=== PATIENT | male | born 1935 | race Caucasian/White ===

== ENCOUNTER → 2017-08-27 | Outpatient (REF) | payer MEDICARE, OTHER ==
[2017-08-27 14:36] LABS: C REACTIVE PROTEIN QUANTITATIV 1.86 MG/DL (0.00-0.30)
[2017-08-29 16:05] LABS: Lyme Disease IgG/IgM Antibodie <0.91 ISR (0.00-0.90); Lyme Disease IgM Ab Quantitati <0.80 index (0.00-0.79)
== END ==
LOC: M LAB REF 13:33
DX: M79.1 Myalgia (principal); M25.50 Pain in unspecified joint
CPT/HCPCS: 86140

== ENCOUNTER → 2017-12-04 | Outpatient (REF) | payer MEDICARE ==
[2017-12-04 14:08] LABS: C REACTIVE PROTEIN QUANTITATIV 0.67 MG/DL (0.00-0.30)
== END ==
LOC: M LAB REF 13:54
DX: M79.10 Myalgia, unspecified site (principal); R62.7 Adult failure to thrive
CPT/HCPCS: 86140

== ENCOUNTER → 2018-08-19 | Outpatient (REF) | payer MEDICARE | LOC: M LAB REF 12:34 | PROVIDERS: ATTEND Internal Medicine | DX: M79.10 Myalgia, unspecified site (principal); R62.7 Adult failure to thrive ==

== ENCOUNTER → 2018-11-25 | Outpatient (REF) | payer MEDICARE | LOC: M LAB REF 12:17 | PROVIDERS: ATTEND Internal Medicine | DX: M79.10 Myalgia, unspecified site (principal) ==

== ENCOUNTER 2019-02-17 09:17 | Day surgery (SDC) | payer MEDICARE ==
[~2019-02-17] VITALS: Ht 170.2 cm; Wt 70.3 kg
[~2019-02-17 09:17] MED LIST: ATOR1TAB19 PO; CVS1CAP2 PO; LISI-538 PO; MULTTAB86 PO; NS 1,000 ML IV ONE; PANT40TA3 PO; PROS5TAB PO
[2019-02-17] MEDS ORDERED: LIDOCAINE 2% INJ 100 MG/5 ML SDV (FOR ANES.) As Ordered ONE (10:53)
[2019-02-17] MEDS ORDERED: propofoL 200 MG/20 ML VIAL As Ordered ONE (10:53)
--- NOTE | 2019-02-17 11:04 | ROOR ---
Patient Name: Rainer Pablo Procedure Date: 02/17/2019 10:45 AM Date of : 1935 Age: 84 Room: [facility] Gender: Male Note Status: Finalized Procedure: Upper Endoscopy + Biopsies + Dilatation Indications: Heartburn, Exclusion of Curtis's esophagus Providers: Ted Rachel MD Referring MD: Elvira PIERCE MD Requesting Provider: Medicines: Monitored Anesthesia Care Complications: No immediate complications. Procedure: Pre-Anesthesia Assessment: - The heart rate, respiratory rate, oxygen saturations, blood pressure, adequacy of pulmonary ventilation, and response to care were monitored throughout the procedure. The Endoscope was introduced through the mouth, and advanced to the second part of duodenum. The upper GI endoscopy was accomplished without difficulty. The patient tolerated the procedure well. Findings: The Z-line was variable and was found 40 cm from the incisors. Multiple biopsies were obtained with cold forceps for evaluation to rule out Curtis's Esophagus randomly at the gastroesophageal junction. A small hiatal hernia was present. 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 This was traversed. A TTS dilator was passed through the scope. Dilation with a 12-13.5-15 mm balloon dilator was performed to 15 mm. The dilation site was examined and showed complete resolution of luminal narrowing. The exam of the duodenum was otherwise normal. Impression: - Z-line variable, 40 cm from the incisors. - Small hiatal hernia. - Gastric stenosis was found at the pylorus. Dilated. - Multiple biopsies were obtained at the gastroesophageal junction. Recommendation: - Patient has a contact number available for emergencies. The signs and symptoms of potential delayed complications were discussed with the patient. Return to normal activities tomorrow. Written discharge instructions were provided to the patient. - Resume previous diet. - Follow an antireflux regimen. - Continue present medications. - Await pathology results. - Telephone GI clinic for pathology results in 1 week. - Return to referring physician. - The findings and recommendations were discussed with the patient's family. Ted Rachel MD Ted Rachel MD 02/17/2019 11:03:28 AM Electronically signed by Ted Rachel MD Number of Addenda: 0 Note Initiated On: 02/17/2019 10:45 AM Estimated Blood Loss: Estimated blood loss: none.
--- NOTE | 2019-02-17 11:21 | ROOR ---
Patient Name: Rainer Pablo Procedure Date: 02/17/2019 10:49 AM Date of : 1935 Age: 84 Room: [facility] Gender: Male Note Status: Finalized Procedure: Total Colonoscopy to Cecum Indications: Screening for colorectal malignant neoplasm Providers: Ted Rachel MD Referring MD: Elvira PIERCE MD Requesting Provider: Medicines: Monitored Anesthesia Care Complications: No immediate complications. Procedure: Pre-Anesthesia Assessment: - The heart rate, respiratory rate, oxygen saturations, blood pressure, adequacy of pulmonary ventilation, and response to care were monitored throughout the procedure. The Colonoscope was introduced through the anus and advanced to the cecum, identified by appendiceal orifice and ileocecal valve. The colonoscopy was performed without difficulty. The patient tolerated the procedure well. The quality of the bowel preparation was excellent. Findings: The perianal and digital rectal examinations were normal. Non-bleeding internal hemorrhoids were found during retroflexion. The hemorrhoids were small and Grade I (internal hemorrhoids that do not prolapse). Multiple small and large-mouthed diverticula were found in the recto-sigmoid colon, sigmoid colon and descending colon. The exam was otherwise without abnormality on direct and retroflexion views. Impression: - Non-bleeding internal hemorrhoids. - Diverticulosis in the recto-sigmoid colon, in the sigmoid colon and in the descending colon. - The examination was otherwise normal on direct and retroflexion views. - No specimens collected. - The exam was otherwise normal to the cecum. Recommendation: - Patient has a contact number available for emergencies. The signs and symptoms of potential delayed complications were discussed with the patient. Return to normal activities tomorrow. Written discharge instructions were provided to the patient. - High fiber diet. - Discharge patient to home. - Continue present medications. - Repeat colonoscopy prn for symptoms only - Return to referring physician. - The findings and recommendations were discussed with the patient's family. Ted Rachel MD Ted Rachel MD 02/17/2019 11:20:30 AM Electronically signed by Ted Rachel MD Number of Addenda: 0 Note Initiated On: 02/17/2019 10:49 AM Estimated Blood Loss: Estimated blood loss: none.
[2019-02-17 11:40] VITALS: BP 94/49
== END 2019-02-17 11:54 | disposition home or self-care (01) ==
LOC: M OPP 09:17
PROVIDERS: ATTEND Internal Medicine Gastroenterology
DX: Z12.11 Encounter for screening for malignant neoplasm of colon (principal); K64.0 First degree hemorrhoids; K57.30 Diverticulosis of large intestine without perforation or abscess without bleeding; K22.8 Other specified diseases of esophagus; K44.9 Diaphragmatic hernia without obstruction or gangrene; K31.1 Adult hypertrophic pyloric stenosis; R12 Heartburn; Z79.899 Other long term (current) drug therapy
CPT/HCPCS: 43245; 88305; G0121

== ENCOUNTER → 2019-12-06 | Outpatient (REF) | payer MEDICARE ==
[~2019-12-06] MED LIST changes: -NS 1,000 ML IV ONE; +PANT40TA29 PO; -PANT40TA3 PO
== END ==
LOC: M LAB REF 16:39
PROVIDERS: ATTEND Internal Medicine
DX: N18.30 Chronic kidney disease, stage 3 unspecified (principal); I12.9 Hypertensive chronic kidney disease with stage 1 through stage 4 chronic kidney disease, or unspecified chronic kidney disease; M15.0 Primary generalized (osteo)arthritis

== ENCOUNTER → 2020-11-22 | Outpatient (REF) | payer MEDICARE ==
[~2020-11-22] MED LIST changes: -LISI-538 PO; +LISI20TA33 PO
== END ==
LOC: M LAB REF 11:16
PROVIDERS: ATTEND Internal Medicine
DX: N18.30 Chronic kidney disease, stage 3 unspecified (principal)

== ENCOUNTER → 2021-05-24 | Outpatient (REF) | payer MEDICARE ==
[~2021-05-24] MED LIST changes: +PRED20TA; +PRED20TA PO
[2021-05-24 15:34] LABS: HEMOGLOBIN 13.3 g/dl (13.5-17.5); MEAN CORPUSCULAR HEMOGLOBIN 33.7 pg (27.0-33.0); MEAN CORPUSCULAR VOLUME 96.2 fl (80.0-96.0); RED BLOOD COUNT 3.95 10^6/uL (4.30-6.10); WHITE BLOOD COUNT 8.6 10^3/uL (4.0-10.0)
[2021-05-24 15:35] LABS: BASO % 0.2 % (0.0-1.0); EOS # 0.1 10^3/uL (0.0-0.5); LYMPH # 1.1 10^3/uL (1.5-5.0); LYMPH % 12.3 % (24.0-44.0); MONO # 0.8 10^3/uL (0.0-0.8); MONO % 9.5 % (2.0-8.0); NEUTROPHILS # 6.6 10^3/uL (1.5-8.5); NEUTROPHILS % 76.5 % (36.0-66.0); PLATELET COUNT, AUTOMATED 7 10^3/uL (150-450)
[2021-05-24 15:39] LABS: PLTBLUE- EDTA FREE CALC 7 K/mm3 (172-450); PLTBLUE- EDTA FREE MACHINE 6 10^3/uL (172-450)
== END ==
LOC: M LAB REF 13:33
PROVIDERS: ATTEND Internal Medicine
DX: D69.6 Thrombocytopenia, unspecified (principal)

== ENCOUNTER → 2021-12-05 | Outpatient (REF) | payer MEDICARE ==
[~2021-12-05] MED LIST changes: +PRED10TA2 PO; +PRED5PAK PO; +PROM50TA28 PO
[2021-12-05 08:38] LABS: BASO % 0.2 % (0.0-1.0); HEMATOCRIT 41.4 % (42.0-52.0); HEMOGLOBIN 13.7 g/dl (13.5-17.5); LYMPH # 0.9 10^3/uL (1.5-5.0); LYMPH % 4.7 % (24.0-44.0); MEAN CORPUSCULAR HEMOGLOBIN 32.1 pg (27.0-33.0); MEAN CORPUSCULAR HGB CONC 33.1 g/dl (32.0-36.5); MONO # 1.3 10^3/uL (0.0-0.8); MONO % 6.7 % (2.0-8.0); NEUTROPHILS # 17.1 10^3/uL (1.5-8.5); NEUTROPHILS % 86.7 % (36.0-66.0); PLATELET COUNT, AUTOMATED 121 10^3/uL (150-450); RED BLOOD COUNT 4.27 10^6/uL (4.30-6.10); WHITE BLOOD COUNT 19.7 10^3/uL (4.0-10.0)
[2021-12-05 09:21] LABS: ALBUMIN 3.3 GM/DL (3.2-5.2); BILIRUBIN,TOTAL 0.7 MG/DL (0.2-1.0); CALCIUM LEVEL 9.2 MG/DL (8.8-10.2); CHOLESTEROL RISK RATIO 2.557 (<5); CREATININE FOR GFR 1.59 MG/DL (0.70-1.30); GLOMERULAR FILTRATION RATE 44.3 (>35); MAGNESIUM LEVEL 2.2 MG/DL (1.8-2.4); PHOSPHORUS LEVEL 3.1 MG/DL (2.5-4.9); POTASSIUM SERUM 4.3 MEQ/L (3.5-5.1); THYROID STIMULATING HORMONE 1.13 uIU/ML (0.358-3.740); TOTAL PROTEIN 5.9 GM/DL (6.4-8.2)
== END ==
LOC: M LAB REF 07:57
PROVIDERS: ATTEND Internal Medicine
DX: E78.00 Pure hypercholesterolemia, unspecified (principal); I10 Essential (primary) hypertension; E78.5 Hyperlipidemia, unspecified; Z79.899 Other long term (current) drug therapy; G47.00 Insomnia, unspecified; N18.32 Chronic kidney disease, stage 3b

== ENCOUNTER → 2022-10-10 | Outpatient (CLI) | payer MEDICARE ==
[~2022-10-10] MED LIST changes: +FERR325T3 PO; +FINA-48 PO; +PRED5TA PO; -PROS5TAB PO
== END ==
LOC: M PLAIMG 11:12
PROVIDERS: ATTEND Internal Medicine
DX: R05.9 Cough, unspecified (principal)

== ENCOUNTER → 2022-11-15 | Outpatient (CLI) | payer MEDICARE ==
[~2022-11-15] MED LIST changes: +GASTROGRAFIN SOLUTION 30ML As Ordered ONE; +ISOVUE-370 76% 100ML VIAL As Ordered ONE
== END ==
LOC: M RAD 11:13
PROVIDERS: ATTEND Internal Medicine
DX: N20.0 Calculus of kidney (principal); N28.9 Disorder of kidney and ureter, unspecified; R05.9 Cough, unspecified; R63.4 Abnormal weight loss
CPT/HCPCS: 71250; 74177; Q9963; Q9967

== ENCOUNTER → 2022-11-25 | Outpatient (REF) | payer MEDICARE ==
[~2022-11-25] MED LIST changes: -GASTROGRAFIN SOLUTION 30ML As Ordered ONE; -ISOVUE-370 76% 100ML VIAL As Ordered ONE
[2022-11-25 13:24] LABS: APPEARANCE, URINE CLEAR (CLEAR); BACTERIA, URINE AUTO NEGATIVE (NEGATIVE); BILIRUBIN, URINE AUTO NEGATIVE (NEGATIVE); BLOOD, URINE BLOOD NEGATIVE (NEGATIVE); COLOR, URINE YELLOW (YELLOW); GLUCOSE, URINE (UA) AUTO NEGATIVE (NEGATIVE); KETONE, URINE AUTO NEGATIVE (NEGATIVE); LEUKOCYTE ESTERASE, URINE AUTO NEGATIVE (NEGATIVE); MUCUS, URINE SMALL (NEGATIVE); NITRITE, URINE AUTO NEGATIVE (NEGATIVE); PROTEIN, URINE AUTO NEGATIVE (NEGATIVE); RBC, URINE AUTO 0 /HPF (0-3); SPECIFIC GRAVITY URINE AUTO 1.015 (1.002-1.035); SQUAMOUS EPITHELIAL CELL UR AU 0 /HPF (0-6); UROBILINOGEN, URINE AUTO 0.2 mg/dL (0.0-2.0); WBC, URINE AUTO 0 /HPF (0-3)
== END ==
LOC: M LAB REF 12:40
PROVIDERS: ATTEND Internal Medicine
DX: N40.1 Benign prostatic hyperplasia with lower urinary tract symptoms (principal); R82.89 Other abnormal findings on cytological and histological examination of urine

== ENCOUNTER → 2023-01-27 | Outpatient (REF) | payer MEDICARE | LOC: M LAB REF 14:48 | PROVIDERS: ATTEND Internal Medicine | DX: R62.7 Adult failure to thrive (principal); R05.9 Cough, unspecified ==

== ENCOUNTER → 2023-02-18 | Outpatient (REF) | payer MEDICARE ==
[2023-02-18 17:00] LABS: APPEARANCE, URINE CLEAR (CLEAR); BACTERIA, URINE AUTO NEGATIVE (NEGATIVE); BILIRUBIN, URINE AUTO NEGATIVE (NEGATIVE); BLOOD, URINE BLOOD NEGATIVE (NEGATIVE); COLOR, URINE YELLOW (YELLOW); GLUCOSE, URINE (UA) AUTO NEGATIVE (NEGATIVE); KETONE, URINE AUTO NEGATIVE (NEGATIVE); LEUKOCYTE ESTERASE, URINE AUTO NEGATIVE (NEGATIVE); NITRITE, URINE AUTO NEGATIVE (NEGATIVE); PROTEIN, URINE AUTO NEGATIVE (NEGATIVE); RBC, URINE AUTO 1 /HPF (0-3); SPECIFIC GRAVITY URINE AUTO 1.011 (1.002-1.035); SQUAMOUS EPITHELIAL CELL UR AU 0 /HPF (0-6); WBC, URINE AUTO 0 /HPF (0-3)
== END ==
LOC: M LAB REF 16:19
PROVIDERS: ATTEND Internal Medicine
DX: N40.1 Benign prostatic hyperplasia with lower urinary tract symptoms (principal)

== ENCOUNTER → 2023-03-25 | Outpatient (REF) | payer MEDICARE ==
[2023-03-26 12:33] LABS: APPEARANCE, URINE HAZY (CLEAR); BACTERIA, URINE AUTO NEGATIVE (NEGATIVE); BILIRUBIN, URINE AUTO NEGATIVE (NEGATIVE); BLOOD, URINE BLOOD NEGATIVE (NEGATIVE); CALCIUM OXALATE CRYSTALS LARGE; COLOR, URINE YELLOW (YELLOW); GLUCOSE, URINE (UA) AUTO NEGATIVE (NEGATIVE); KETONE, URINE AUTO NEGATIVE (NEGATIVE); LEUKOCYTE ESTERASE, URINE AUTO NEGATIVE (NEGATIVE); MUCUS, URINE SMALL (NEGATIVE); NITRITE, URINE AUTO NEGATIVE (NEGATIVE); PROTEIN, URINE AUTO NEGATIVE (NEGATIVE); RBC, URINE AUTO 1 /HPF (0-3); SQUAMOUS EPITHELIAL CELL UR AU 0 /HPF (0-6); UROBILINOGEN, URINE AUTO 0.2 mg/dL (0.0-2.0); WBC, URINE AUTO 1 /HPF (0-3)
== END ==
LOC: M LAB REF 11:52
PROVIDERS: ATTEND Internal Medicine
DX: N28.1 Cyst of kidney, acquired (principal); N40.1 Benign prostatic hyperplasia with lower urinary tract symptoms; I12.9 Hypertensive chronic kidney disease with stage 1 through stage 4 chronic kidney disease, or unspecified chronic kidney disease; M19.90 Unspecified osteoarthritis, unspecified site; R82.89 Other abnormal findings on cytological and histological examination of urine

== ENCOUNTER → 2023-03-27 | Outpatient (REF) | payer MEDICARE | LOC: M LAB REF 12:37 | PROVIDERS: ATTEND Internal Medicine | DX: R05.9 Cough, unspecified (principal) ==

== ENCOUNTER 2023-04-15 06:39 | Day surgery (SDC) | payer MEDICARE ==
[~2023-04-15] VITALS: Ht 172.7 cm; Wt 61.3 kg
[2023-04-15] MEDS ORDERED: propofoL 200 MG/20 ML VIAL As Ordered ONE (07:01)
[2023-04-15] MEDS: NS 1,000 ML IV ONE (07:19)
[2023-04-15 07:46] VITALS: TEMP 97.6
[2023-04-15 08:10] VITALS: BP 120/59; O2SAT 99
== END 2023-04-15 08:20 | disposition home or self-care (01) ==
LOC: M OPP 06:39
PROVIDERS: ATTEND Internal Medicine Gastroenterology
DX: K31.1 Adult hypertrophic pyloric stenosis (principal); K22.89 Other specified disease of esophagus; R63.4 Abnormal weight loss; I10 Essential (primary) hypertension; E78.00 Pure hypercholesterolemia, unspecified; Z79.899 Other long term (current) drug therapy; Z87.891 Personal history of nicotine dependence

== ENCOUNTER → 2023-11-19 | Outpatient (REF) | payer MEDICARE | LOC: M LAB REF 12:36 | PROVIDERS: ATTEND Internal Medicine | DX: N18.32 Chronic kidney disease, stage 3b (principal); I73.9 Peripheral vascular disease, unspecified ==

== ENCOUNTER → 2024-01-20 | Outpatient (REF) | payer MEDICARE ==
[2024-01-20 17:43] LABS: APPEARANCE, URINE CLEAR (CLEAR); BACTERIA, URINE AUTO NEGATIVE (NEGATIVE); BILIRUBIN, URINE AUTO NEGATIVE (NEGATIVE); BLOOD, URINE BLOOD NEGATIVE (NEGATIVE); COLOR, URINE YELLOW (YELLOW); GLUCOSE, URINE (UA) AUTO NEGATIVE (NEGATIVE); KETONE, URINE AUTO NEGATIVE (NEGATIVE); LEUKOCYTE ESTERASE, URINE AUTO NEGATIVE (NEGATIVE); MUCUS, URINE SMALL (NEGATIVE); NITRITE, URINE AUTO NEGATIVE (NEGATIVE); PROTEIN, URINE AUTO NEGATIVE (NEGATIVE); RBC, URINE AUTO 1 /HPF (0-3); SQUAMOUS EPITHELIAL CELL UR AU 0 /HPF (0-6); UROBILINOGEN, URINE AUTO 0.2 mg/dL (0.0-2.0); WBC, URINE AUTO 0 /HPF (0-3)
== END ==
LOC: M LAB REF 16:27
PROVIDERS: ATTEND Internal Medicine
DX: M54.50 Low back pain, unspecified (principal); I12.9 Hypertensive chronic kidney disease with stage 1 through stage 4 chronic kidney disease, or unspecified chronic kidney disease; R82.89 Other abnormal findings on cytological and histological examination of urine

== ENCOUNTER → 2024-01-22 | Outpatient (REF) | payer MEDICARE | LOC: M LAB REF 14:09 | PROVIDERS: ATTEND Internal Medicine | DX: N18.32 Chronic kidney disease, stage 3b (principal); M19.90 Unspecified osteoarthritis, unspecified site ==

== ENCOUNTER → 2024-04-22 | Outpatient (REF) | payer MEDICARE ==
[2024-04-22 16:27] LABS: URIC ACID 7.3 MG/DL (3.7-9.2)
[2024-04-22 16:31] LABS: PHOSPHORUS LEVEL 2.8 MG/DL (2.4-5.1)
== END ==
LOC: M LAB REF 12:48
PROVIDERS: ATTEND Internal Medicine
DX: N18.32 Chronic kidney disease, stage 3b (principal)

== ENCOUNTER 2024-10-19 08:29 | Emergency (ER) | payer MEDICARE ==
[~2024-10-19] VITALS: Ht 172.7 cm; Wt 67.5 kg
[2024-10-19] MEDS ORDERED: ATOR1TAB21 PO (08:54)
[2024-10-19] MEDS ORDERED: LOSA50TA28 PO (08:57)
[2024-10-19] MEDS ORDERED: FERR325T3 PO (08:57)
[2024-10-19] MEDS ORDERED: HOME MED LIST COMPLETE! XX SCH (09:00)
[2024-10-19] MEDS: LIDOCAINE 2% 5 ML JELLY UROJET TOP ONE ×2 (09:12→10:10)
[2024-10-19 09:17] LABS: BASO # 0.0 10^3/uL (0.0-0.2); BASO % 0.1 % (0.0-1.0); EOS # 0.1 10^3/uL (0.0-0.5); EOS % 0.8 % (0.0-3.0); LYMPH # 0.7 10^3/uL (1.5-5.0); LYMPH % 9.2 % (24.0-44.0); MONO # 0.4 10^3/uL (0.0-0.8); MONO % 5.8 % (2.0-8.0); NEUTROPHILS # 6.4 10^3/uL (1.5-8.5); NEUTROPHILS % 83.3 % (36.0-66.0); PLATELET COUNT, AUTOMATED 258 10^3/uL (150-450)
[2024-10-19] MEDS ORDERED: ISOVUE-370 76% 100 ML VIAL As Ordered ONE (09:29)
[2024-10-19] MEDS: NS (Normal Saline) 0.9% 1,000 ML IV ONE (09:29)
[2024-10-19 09:33] LABS: INR 1.01
[2024-10-19 09:47] LABS: CK-MB VALUE MASS 9.9 NG/ML (<3.6)
[2024-10-19 09:49] LABS: ALT/SGPT 32.0 U/L (7.0-40); AST/SGOT 45.0 U/L (<34); CALCIUM LEVEL 9.7 MG/DL (8.3-10.6); CARBON DIOXIDE LEVEL 26.0 MMOL/L (20-31); CHLORIDE LEVEL 108.0 MMOL/L (98-107); CPK CREATINE PHOSPHOKINASE 63.0 U/L (46-171); CREATININE FOR GFR 1.72 MG/DL (0.70-1.30); GLOMERULAR FILTRATION RATE 37.8 (>35); MAGNESIUM LEVEL 1.8 MG/DL (1.8-2.4); MB/CK RELATIVE INDEX 15.71 (< OR =4); POTASSIUM SERUM 4.6 MMOL/L (3.5-5.1); SODIUM LEVEL 146.0 MMOL/L (136-145)
[2024-10-19 09:51] LABS: FREE T4 1.04 NG/DL (0.89-1.76)
[2024-10-19 10:34] LABS: KETONE, URINE AUTO RFX NEGATIVE (NEGATIVE); LEUKOCYTE ESTERASE UR AUTO RFX NEGATIVE (NEGATIVE); NITRITE, URINE AUTO RFX NEGATIVE (NEGATIVE); RBC, URINE AUTO RFX 0 /HPF (0-3); SQUAM EPITHELIAL CELL UR AURFX 0 /HPF (0-6); WBC, URINE AUTO RFX 1 /HPF (0-3)
[2024-10-19 10:37] LABS: CK-MB VALUE MASS 11.0 NG/ML (<3.6)
[2024-10-19 10:39] LABS: CPK CREATINE PHOSPHOKINASE 64.0 U/L (46-171); MB/CK RELATIVE INDEX 17.18 (< OR =4)
[2024-10-19 11:04] VITALS: BP 95/51; TEMP 96.5; O2SAT 98
[2024-10-19 11:20] VITALS: BP 89/50; TEMP 96.4; TEMP 96.5; O2SAT 98
[2024-10-19] MEDS: NS 500 ML IV ONE (11:35)
[2024-10-19] MEDS: NOREPINEPHRINE 4MG IN D5 250ML 4 MG in IV 1 EA IV SCH (11:56)
[2024-10-19 12:05] VITALS: BP 108/54; TEMP 96.8; O2SAT 93
[2024-10-19 12:24] LABS: CK-MB VALUE MASS 15.1 NG/ML (<3.6)
[2024-10-19] MEDS: ONDANSETRON 4MG 2ML VIAL IV ONE (12:30)
[2024-10-19 12:32] LABS: CPK CREATINE PHOSPHOKINASE 99.0 U/L (46-171); MB/CK RELATIVE INDEX 15.25 (< OR =4)
[2024-10-19 13:02] VITALS: BP 118/56; TEMP 98.2; O2SAT 98
[2024-10-19 13:18] VITALS: BP 130/59; TEMP 97.6; O2SAT 95
[2024-10-19 13:55] VITALS: BP 128/58; TEMP 97.4; O2SAT 96
[2024-10-19] MEDS: PANTOPRAZOLE 40MG VIAL IV ONE (14:15)
== END 2024-10-19 14:05 | disposition short-term general hospital (02) ==
LOC: M ED 08:29
DX: I21.4 Non-ST elevation (NSTEMI) myocardial infarction (principal); D63.1 Anemia in chronic kidney disease; I95.9 Hypotension, unspecified; G45.9 Transient cerebral ischemic attack, unspecified; I63.011 Cerebral infarction due to thrombosis of right vertebral artery; N32.89 Other specified disorders of bladder; I45.81 Long QT syndrome; I10 Essential (primary) hypertension; N18.30 Chronic kidney disease, stage 3 unspecified; F17.200 Nicotine dependence, unspecified, uncomplicated; N28.1 Cyst of kidney, acquired; K57.30 Diverticulosis of large intestine without perforation or abscess without bleeding; K59.00 Constipation, unspecified; Z79.02 Long term (current) use of antithrombotics/antiplatelets; Z79.899 Other long term (current) drug therapy
CPT/HCPCS: 36430; 51702; 70450; 70496; 70498; 71045; 74176; 80047; 80048; 80076; 81001; 82550; 82553; 83605; 83690; 83735; 84145; 84439; 84443; 84484; 85025; 85610; 85730; 86850; 86900; 86901; 86920; 87040; 87486; 87581; 87633; 87798; 93005; 93041; 94760; 96365; 96375; 99291; 99292; J2405; J2470; P9016; Q9967

== ENCOUNTER 2024-10-30 01:30 | Emergency (ER) | payer MEDICARE ==
[~2024-10-30] VITALS: Ht 172.7 cm; Wt 68.0 kg
[2024-10-30] VITALS (10 sets, daily range): BP systolic 99–121; BP diastolic 57–70; TEMP 97.4–99.2; O2SAT 95–98
[~2024-10-30 01:30] MED LIST changes: +ASPI81CH33 PO; +ATOR1TAB21 PO; +LOSA50TA28 PO
[2024-10-30 02:34] LABS: BASO # 0.0 10^3/uL (0.0-0.2); BASO % 0.3 % (0.0-1.0); EOS # 0.0 10^3/uL (0.0-0.5); EOS % 0.4 % (0.0-3.0); LYMPH # 0.3 10^3/uL (1.5-5.0); LYMPH % 4.6 % (24.0-44.0); MONO # 0.6 10^3/uL (0.0-0.8); MONO % 8.8 % (2.0-8.0); NEUTROPHILS # 6.2 10^3/uL (1.5-8.5); NEUTROPHILS % 85.2 % (36.0-66.0); PLATELET COUNT, AUTOMATED 165 10^3/uL (150-450)
[2024-10-30 03:10] LABS: CALCIUM LEVEL 8.2 MG/DL (8.3-10.6); CARBON DIOXIDE LEVEL 19 MMOL/L (20-31); CHLORIDE LEVEL 109 MMOL/L (98-107); CK-MB VALUE MASS 34.0 NG/ML (<3.6); CPK CREATINE PHOSPHOKINASE 203 U/L (46-171); CREATININE FOR GFR 1.86 MG/DL (0.70-1.30); GLOMERULAR FILTRATION RATE 34.4 (>35); MB/CK RELATIVE INDEX 16.74 (< OR =4); POTASSIUM SERUM 4.3 MMOL/L (3.5-5.1); SODIUM LEVEL 140 MMOL/L (136-145)
[2024-10-30] MEDS: NS (Normal Saline) 0.9% 1,000 ML IV ONE ×2 (03:30→03:50)
[2024-10-30 03:47] LABS: CK-MB VALUE MASS 34.2 NG/ML (<3.6)
[2024-10-30 03:48] LABS: CPK CREATINE PHOSPHOKINASE 247.0 U/L (46-171); MB/CK RELATIVE INDEX 13.84 (< OR =4)
[2024-10-30] MEDS: NOREPINEPHRINE 4MG IN D5 250ML 4 MG in IV 1 EA IV SCH (04:44)
[2024-10-30 04:47] LABS: ALT/SGPT 23 U/L (7.0-40); AST/SGOT 57 U/L (<34)
[2024-10-30] MEDS: ONDANSETRON 4MG 2ML VIAL IV ONE (05:25)
[2024-10-30 05:47] LABS: INR 1.17
[2024-10-30] MEDS: ACETAMINOPHEN *IV* 1,000 MG in IV 1 EA IV ONE (08:08)
[2024-10-30] MEDS: diphenhydrAMINE 50 MG/ML VIAL IV ONE (08:08)
[2024-10-30 11:09] LABS: CK-MB VALUE MASS 103.6 NG/ML (<3.6)
[2024-10-30 11:13] LABS: CPK CREATINE PHOSPHOKINASE 540.0 U/L (46-171); MB/CK RELATIVE INDEX 19.18 (< OR =4)
[2024-10-30 11:34] LABS: BASO # 0.0 10^3/uL (0.0-0.2); BASO % 0.1 % (0.0-1.0); EOS # 0.0 10^3/uL (0.0-0.5); EOS % 0.0 % (0.0-3.0); LYMPH # 0.2 10^3/uL (1.5-5.0); LYMPH % 1.8 % (24.0-44.0); MONO # 0.3 10^3/uL (0.0-0.8); MONO % 2.4 % (2.0-8.0); NEUTROPHILS # 11.2 10^3/uL (1.5-8.5); NEUTROPHILS % 95.0 % (36.0-66.0); PLATELET COUNT, AUTOMATED 179 10^3/uL (150-450)
== END 2024-10-30 14:03 | disposition short-term general hospital (02) ==
LOC: M ED 01:30
DX: I21.A1 Myocardial infarction type 2 (principal); I95.9 Hypotension, unspecified; D59.9 Acquired hemolytic anemia, unspecified; R00.0 Tachycardia, unspecified; I10 Essential (primary) hypertension; M54.50 Low back pain, unspecified; Z86.79 Personal history of other diseases of the circulatory system; Z79.82 Long term (current) use of aspirin; Z79.02 Long term (current) use of antithrombotics/antiplatelets; Z79.899 Other long term (current) drug therapy
CPT/HCPCS: 36415; 36430; 71045; 80048; 80076; 82550; 82553; 83010; 84484; 85025; 85046; 85610; 85730; 86850; 86870; 86900; 86901; 86920; 93005; 93041; 94760; 96361; 96365; 96366; 96375; 96376; 99285; J0131; J1200; J2405; J2919; J3010; P9016

== ENCOUNTER → 2025-01-24 | Outpatient (CLI) | payer MEDICARE ==
[~2025-01-24] MED LIST changes: +CARV3.12; +CLOP75TA2 PO; +FARX1TAB5; +FURO40TA2 PO; +PRED25TA PO; +PROT1TAB2 PO; +TAMS-18 PO; +TOPR50TA PO
== END ==
LOC: M EKG 11:22
PROVIDERS: ATTEND Internal Medicine Cardiovascular Disease
DX: I44.0 Atrioventricular block, first degree (principal)

== ENCOUNTER → 2025-01-28 | Outpatient (REF) | payer MEDICARE ==
[2025-01-28 12:08] LABS: CALCIUM LEVEL 8.1 MG/DL (8.3-10.6); CARBON DIOXIDE LEVEL 27.0 MMOL/L (20-31); CHLORIDE LEVEL 111.0 MMOL/L (98-107); CREATININE FOR GFR 1.88 MG/DL (0.70-1.30); GLOMERULAR FILTRATION RATE 33.7 (>35); PHOSPHORUS LEVEL 3.7 MG/DL (2.4-5.1); POTASSIUM SERUM 4.1 MMOL/L (3.5-5.1); SODIUM LEVEL 148.0 MMOL/L (136-145)
[2025-01-28 16:52] LABS: PLATELET COUNT, AUTOMATED 148 10^3/uL (150-450)
== END ==
LOC: M LAB REF 11:05
PROVIDERS: ATTEND Internal Medicine Cardiovascular Disease
DX: I50.22 Chronic systolic (congestive) heart failure (principal)

== ENCOUNTER → 2025-02-09 | Outpatient (CLI) | payer MEDICARE ==
[2025-02-09 14:15] LABS: CALCIUM LEVEL 8.2 MG/DL (8.3-10.6); CARBON DIOXIDE LEVEL 28.0 MMOL/L (20-31); CHLORIDE LEVEL 110.0 MMOL/L (98-107); CREATININE FOR GFR 2.25 MG/DL (0.70-1.30); GLOMERULAR FILTRATION RATE 27.2 (>35); MAGNESIUM LEVEL 1.8 MG/DL (1.8-2.4); POTASSIUM SERUM 3.8 MMOL/L (3.5-5.1); SODIUM LEVEL 146.0 MMOL/L (136-145)
== END ==
LOC: M PLALAB 11:15
PROVIDERS: ATTEND Nurse Practitioner Family
DX: I50.22 Chronic systolic (congestive) heart failure (principal)